=== PATIENT | female | born 1970 | race Two or more races ===

== ENCOUNTER 2019-09-22 14:44 | Outpatient (CLI) | payer OTHER ==
[2019-09-22] MEDS ORDERED: ENAL20TA68 PO (15:11)
[2019-09-22] MEDS ORDERED: HYDR25TA6 PO (15:11)
[2019-09-22] MEDS ORDERED: METF500T17 PO (15:11)
[2019-09-22] MEDS ORDERED: ASPI-515 PO (15:25)
[2019-09-22 16:07] LABS: ALANINE AMINOTRANSFERASE 23 U/L (12-78); ALBUMIN 3.7 g/dL (3.4-5.0); ANION GAP 4 mmol/L (5-15); CALCIUM 9.2 mg/dL (8.5-10.1); CHLORIDE 106 mmol/L (98-107); CREATININE 0.73 mg/dL (0.55-1.02)
[2019-09-22 16:09] LABS: ALKALINE PHOSPHATASE 89 U/L (45-117); BILIRUBIN,TOTAL 0.5 mg/dL (0.2-1.0)
== END 2019-09-22 23:59 | disposition home or self-care (01) ==
LOC: STAR 14:44
PROVIDERS: ATTEND Internal Medicine Gastroenterology
DX: Z01.818 Encounter for other preprocedural examination (principal)
CPT/HCPCS: 36415; 80053; 93005

== ENCOUNTER 2019-10-01 07:18 | Day surgery (SDC) | payer OTHER ==
[~2019-10-01] VITALS: Ht 167.6 cm; Wt 131.4 kg
[~2019-10-01 07:18] MED LIST: ASPI-515 PO; ENAL20TA68 PO; HYDR25TA6 PO; METF500T17 PO
[2019-10-01] MEDS ORDERED: LACTATED RINGERS 1,000 ML IV SCH (07:59)
[2019-10-01 08:02] VITALS: BP 164/106
[2019-10-01] MEDS ORDERED: PROPOFOL 50 ML ONE (08:54)
== END 2019-10-01 10:50 | disposition home or self-care (01) ==
LOC: OUT 07:18
PROVIDERS: ATTEND Internal Medicine Gastroenterology
DX: Z12.11 Encounter for screening for malignant neoplasm of colon (principal); K57.30 Diverticulosis of large intestine without perforation or abscess without bleeding; K64.9 Unspecified hemorrhoids; E11.9 Type 2 diabetes mellitus without complications; I10 Essential (primary) hypertension; E66.01 Morbid (severe) obesity due to excess calories; Z88.6 Allergy status to analgesic agent
CPT/HCPCS: 45380; 82962; 84703; 88305; J2704; J7120